=== PATIENT | female | born 1975 | race Caucasian/White ===

== ENCOUNTER → 2018-09-22 | Outpatient (CLI) | payer BC | LOC: RAD 09:38 | DX: Z12.31 Encounter for screening mammogram for malignant neoplasm of breast (principal) ==

== ENCOUNTER → 2018-10-05 | Outpatient (CLI) | payer BC | LOC: ULTRA 10:13 | DX: N83.01 Follicular cyst of right ovary (principal); N93.8 Other specified abnormal uterine and vaginal bleeding ==

== ENCOUNTER → 2020-07-13 | Outpatient (CLI) | payer OTHER | LOC: RAD 09:50 | PROVIDERS: ATTEND Family Medicine | DX: M77.31 Calcaneal spur, right foot (principal); M79.89 Other specified soft tissue disorders ==

== ENCOUNTER → 2020-07-13 | Outpatient (CLI) | payer BC | LOC: RAD 10:46 | PROVIDERS: ATTEND Family Medicine | DX: Z12.31 Encounter for screening mammogram for malignant neoplasm of breast (principal) ==